=== PATIENT | female | born 1950 | race Hispanic/Latino ===

== ENCOUNTER → 2020-05-08 | Outpatient (CLI) | payer OTHER, MEDICARE | END | disposition home or self-care (01) | LOC: RAH 09:05 | PROVIDERS: ATTEND Internal Medicine Cardiovascular Disease | DX: I10 Essential (primary) hypertension (principal) | CPT/HCPCS: 93306; 93356 ==

== ENCOUNTER → 2020-05-11 | Outpatient (CLI) | payer OTHER, MEDICARE ==
[~2020-05-11] VITALS: Ht 154.9 cm; Wt 92.5 kg
[~2020-05-11] MED LIST: REGADENOSON 0.4 MG/5 ML PF SYG IVP SCH
== END | disposition home or self-care (01) ==
LOC: SHCH 08:53 → EDUNIT# 09:10
PROVIDERS: ATTEND Internal Medicine Cardiovascular Disease
DX: I20.9 Angina pectoris, unspecified (principal); I10 Essential (primary) hypertension
CPT/HCPCS: 78452; 93017; 96374; A9500 ×2; J2785

== ENCOUNTER 2020-05-30 06:00 | Day surgery (SDC) | payer OTHER, MEDICARE ==
[2020-05-26 12:52] LABS: BASOPHILS % (AUTO) 0.5 % (0.0-5.0); EOSINOPHILS % (AUTO) 2.7 % (0.0-8.0); HEMATOCRIT 36.8 % (36-48); LYMPHOCYTES % (AUTO) 18.3 % (21.0-51.0); MEAN CORPUSCULAR HEMOGLOBIN 30.2 pg (27.0-33.0); MEAN CORPUSCULAR HGB CONC 31.8 g/dL (32.0-36.0); MEAN CORPUSCULAR VOLUME 94.8 fL (79-99); MONOCYTES % (AUTO) 6.9 % (3.0-13.0); NEUTROPHILS % (AUTO) 71.3 % (40.0-77.0); PLATELET COUNT (AUTO) 152 K/uL (130-400); RED BLOOD CELL COUNT(AUTO) 3.88 MIL/uL (4.00-5.50); WHITE BLOOD COUNT (AUTO) 6.2 K/uL (4.8-10.8)
[2020-05-26 13:00] LABS: CREATININE 1.4 mg/dL (0.5-1.5)
[2020-05-26 13:00] LABS: APPEARANCE,URINE Clear (CLEAR); BILIRUBIN,URINE Negative (NEGATIVE); COLOR,URINE Yellow (YELLOW); GLUCOSE, URINE (UA) Negative (NEGATIVE); KETONES,URINE Negative (NEGATIVE); LEUKOCYTE ESTERASE ,URINE Small (NEGATIVE); NITRATE,URINE Negative (NEGATIVE); OCCULT BLOOD,URINE Negative (NEGATIVE); PROTEIN,URINE Negative (NEGATIVE)
[2020-05-26 13:06] LABS: INR 0.95 (0.85-1.15); PARTIAL THROMBOPLASTIN TIME 26.2 SEC (26.3-35.5); PROTHROMBIN TIME 10.3 SEC (9.6-11.6)
[2020-05-26 13:55] LABS: RBC,URINE 0-1 /HPF (0-1)
[2020-05-26 13:56] LABS: BACTERIA,URINE Few /HPF (None Seen)
[2020-05-29 09:37] VITALS: BP 146/73
[~2020-05-30] VITALS: Ht 154.9 cm; Wt 92.5 kg
[2020-05-30] VITALS (12 sets, daily range): BP systolic 129–168; BP diastolic 43–80
[~2020-05-30 06:00] MED LIST changes: +ALLO100T PO; +CHOL500045 PO; +COLC0.6T70 PO; +DILT240T13 PO; +DOXA1TAB2 PO; +FLUO10TA3 PO; +ISOS30TA6 PO; +LOSA25TA41 PO; +MONT10TA26 PO; +NITR0.4T50 SL; -REGADENOSON 0.4 MG/5 ML PF SYG IVP SCH; +ROSU40TA21 PO; +SODIUM CHLORIDE 0.9% 500ML 500 ML IV SCH; +SPIR25TA6 PO
[2020-05-30] MEDS ORDERED: SODIUM CHLORIDE 0.9% 1000ML 1,000 ML IV ONE (06:12)
--- NOTE | 2020-05-30 07:11 | NUR ---
ASSESSENT PT HERE FOR PROCEDURE. DENIES CHEST PAIN AT THIS TIME. SON AT BEDSIDE.
[2020-05-30] MEDS ORDERED: HEPARIN SODIUM 1000UNIT/ML 10ML VIAL ONE (07:16)
[2020-05-30] MEDS ORDERED: LIDOCAINE HCL 2% 20ML ONE (07:17)
[2020-05-30] MEDS ORDERED: IOHEXOL-350 75 ML VIAL IV ONE (07:17)
[2020-05-30] MEDS ORDERED: AEC81 PO (07:37)
--- NOTE | 2020-05-30 07:40 | NUR ---
PROCEDURE PT TAKEN TO PROCEDURE VIA BED BY FRONT DESK OFFICER STAFF.
[2020-05-30] MEDS ORDERED: SODIUM CHLORIDE 0.9% 1000ML 1,000 ML IV SCH (08:15)
--- NOTE | 2020-05-30 09:19 | NUR ---
ANXIETY PT HAVING ANXIETY. CANT SIT STILL. SON AT BEDSIDE. STATES SHES " NOT LIKE THIS". OXYGEN PLACED 2 L VIA NC AND UNCOVERED PT. BRENDA MCNALLY INFORMED OF ALL THIS. NO ORDERS RECEIVED. STATES TO CONTINUE TO MONITOR.
--- NOTE | 2020-05-30 12:19 | NUR ---
dc instructions discharge instructions given to SON. NO ANY QUESTIONS AT THIS TIME. SITE TO RIGHT GROIN SOFT TO TOUCH.
--- NOTE | 2020-05-30 14:30 | NUR ---
PT discharged home, appears calm and relaxed, tolerating fluids well, ambulating well with cane, denies any severe pain, nausea or dizziness. Pt voided good amount prior to discharging home. Site to right cath site remains soft and non-tender, dressing clean, dry and intact. Pt and family member report no further questions at this time.
== END 2020-05-30 14:30 | disposition home or self-care (01) ==
LOC: DAH 06:00
PROVIDERS: ATTEND Internal Medicine Cardiovascular Disease
DX: I25.110 Atherosclerotic heart disease of native coronary artery with unstable angina pectoris (principal); E78.00 Pure hypercholesterolemia, unspecified; E66.09 Other obesity due to excess calories; Z68.38 Body mass index [BMI] 38.0-38.9, adult; Z82.49 Family history of ischemic heart disease and other diseases of the circulatory system; Z88.8 Allergy status to other drugs, medicaments and biological substances; Z90.49 Acquired absence of other specified parts of digestive tract; Z98.890 Other specified postprocedural states; Z85.528 Personal history of other malignant neoplasm of kidney; Z79.01 Long term (current) use of anticoagulants
CPT/HCPCS: 36415; 71045; 80048; 81001; 85025; 85610; 85730; 93005; 93458; A4215; A4216; A4221; A4222; A4223 ×3; A4606; A4663; A6260; C1894; J1644; J3490; J7030; Q9967

== ENCOUNTER → 2020-07-26 | Outpatient (CLI) | payer OTHER, MEDICARE ==
[~2020-07-26] MED LIST changes: +AEC81 PO; -COLC0.6T70 PO; +COLC0.6T73 PO; -MONT10TA26 PO; +MONT10TA96 PO; -SODIUM CHLORIDE 0.9% 500ML 500 ML IV SCH
== END | disposition home or self-care (01) ==
LOC: SHCH 11:14
PROVIDERS: ATTEND Internal Medicine Cardiovascular Disease
DX: I65.21 Occlusion and stenosis of right carotid artery (principal)
CPT/HCPCS: 93880

== ENCOUNTER 2021-02-07 06:06 | Day surgery (SDC) | payer OTHER, MEDICARE ==
[2021-01-31 12:42] LABS: BASOPHILS % (AUTO) 0.5 % (0.0-5.0); EOSINOPHILS % (AUTO) 3.7 % (0.0-8.0); HEMATOCRIT 37.7 % (36-48); LYMPHOCYTES % (AUTO) 20.5 % (21.0-51.0); MEAN CORPUSCULAR HGB CONC 31.6 g/dL (32.0-36.0); MONOCYTES % (AUTO) 6.3 % (3.0-13.0); NEUTROPHILS % (AUTO) 68.8 % (40.0-77.0); PLATELET COUNT (AUTO) 147 K/uL (130-400); RED BLOOD CELL COUNT(AUTO) 3.97 MIL/uL (4.00-5.50); RED CELL DISTRIBUTION WIDTH 13.6 % (11.0-15.5)
[2021-01-31 12:49] LABS: APPEARANCE,URINE Clear (CLEAR); BILIRUBIN,URINE Negative (NEGATIVE); COLOR,URINE Yellow (YELLOW); GLUCOSE, URINE (UA) Negative (NEGATIVE); KETONES,URINE Negative (NEGATIVE); LEUKOCYTE ESTERASE ,URINE Small (NEGATIVE); NITRATE,URINE Negative (NEGATIVE); OCCULT BLOOD,URINE Negative (NEGATIVE); PH,URINE 5.5 (5.0-8.0); PROTEIN,URINE Negative (NEGATIVE)
[2021-01-31 12:51] LABS: POTASSIUM 5.3 mmol/L (3.5-5.1)
[2021-01-31 12:54] LABS: INR 1.01 (0.85-1.15)
[2021-01-31 12:55] LABS: PARTIAL THROMBOPLASTIN TIME 26.8 SEC (26.3-35.5)
[2021-01-31 12:59] LABS: BACTERIA,URINE Rare /HPF (None Seen); RBC,URINE 0-1 /HPF (0-1); SQUAMOUS EPITHELIAL CELL,UR Rare /HPF (0-2); WBC,URINE 0-1 /HPF (0-1)
[2021-02-06 14:26] VITALS: BP 169/74
[2021-02-07] VITALS (14 sets, daily range): BP systolic 140–198; BP diastolic 47–92
[~2021-02-07] VITALS: Ht 154.9 cm; Wt 93.0 kg
[~2021-02-07 06:06] MED LIST changes: +0.9% NACL 500ML IV.SOLN 500 ML IV SCH; +CALC-190 PO; -CHOL500045 PO; -DILT240T13 PO; -ISOS30TA6 PO; +LISI20TA24 PO; -LOSA25TA41 PO; +METO-391 PO; +MONT10TA32 PO; -MONT10TA96 PO
[2021-02-07] MEDS ORDERED: 0.9%NACL 1000ML 1,000 ML IV ONE (06:16)
[2021-02-07] MEDS ORDERED: LIDOCAINE HCL 400MG/20ML VIAL ONE (07:11)
[2021-02-07] MEDS ORDERED: HEPARIN 10,000 UNIT/10ML (1,000 UNIT/ML) VIAL ONE (07:11)
[2021-02-07] MEDS ORDERED: IOHEXOL 350 MG/ML 100ML INFUS..BTL IV ONE (07:11)
[2021-02-07] MEDS ORDERED: IOHEXOL-350 50ML VIAL IV ONE (07:11)
[2021-02-07] MEDS ORDERED: HEPARIN 1,000 UNIT VIAL ONE (07:13)
[2021-02-07] MEDS ORDERED: ATROPINE 1MG SYG IVP ONE (07:45)
[2021-02-07] MEDS ORDERED: HYDRALAZINE 20MG/ML VIAL ONE (08:01)
[2021-02-07] MEDS ORDERED: ENALAPRILAT DIHYDRATE 1.25 MG/ML 2ML VIAL IVP ONE (08:10)
[2021-02-07] MEDS ORDERED: NITROGLYCERIN 4.1 GM SPRAY TL ONE (08:18)
[2021-02-07] MEDS ORDERED: 0.9%NACL 1000ML 1,000 ML IV SCH (08:30)
[2021-02-07] MEDS ORDERED: APAP-CODEINE 300/30MG TAB ONE (09:33)
[2021-02-07] MEDS ORDERED: MORPHINE 4 MG SYG ONE (09:54)
== END 2021-02-07 17:25 | disposition home or self-care (01) ==
LOC: DAH 06:06
PROVIDERS: ATTEND Internal Medicine Cardiovascular Disease
DX: I25.119 Atherosclerotic heart disease of native coronary artery with unspecified angina pectoris (principal); I11.0 Hypertensive heart disease with heart failure; I50.22 Chronic systolic (congestive) heart failure; E78.5 Hyperlipidemia, unspecified; Z90.49 Acquired absence of other specified parts of digestive tract; Z90.5 Acquired absence of kidney; Z79.899 Other long term (current) drug therapy; Z98.890 Other specified postprocedural states; Z79.01 Long term (current) use of anticoagulants
CPT/HCPCS: 36415 ×2; 71045; 80048; 81001; 84132; 85025; 85610; 85730; 93005; 93458; A4215; A4216; A4221; A4222; A4223 ×3; A4335; A4606; A4663; A6260; A6402; C1894 ×2; J0360; J1644 ×2; J2270; J3490 ×2; J7030; Q9965; Q9967 ×2; 96360; 96361; J0461

== ENCOUNTER → 2022-03-20 | Outpatient (CLI) | payer OTHER, MEDICARE ==
[~2022-03-20] MED LIST changes: -0.9% NACL 500ML IV.SOLN 500 ML IV SCH; +MONT-39 PO; -MONT10TA32 PO
[2022-03-20 12:47] LABS: CREATININE 1.1 mg/dL (0.5-1.5); POTASSIUM 4.4 mmol/L (3.5-5.1)
== END | disposition home or self-care (01) ==
LOC: LAB 09:06
PROVIDERS: ATTEND Physician Assistant
DX: I10 Essential (primary) hypertension (principal)
CPT/HCPCS: 36415; 80048

== ENCOUNTER → 2022-04-25 | Outpatient (CLI) | payer OTHER, MEDICARE | END | disposition home or self-care (01) | LOC: OIH 10:27 | PROVIDERS: ATTEND Internal Medicine Cardiovascular Disease | DX: I87.2 Venous insufficiency (chronic) (peripheral) (principal) | CPT/HCPCS: 93970 ==

== ENCOUNTER → 2022-05-09 | Outpatient (CLI) | payer OTHER, MEDICARE | END | disposition home or self-care (01) | LOC: SHCH 07:50 | PROVIDERS: ATTEND Internal Medicine Cardiovascular Disease | DX: I10 Essential (primary) hypertension (principal) | CPT/HCPCS: 93975 ==

== ENCOUNTER → 2022-07-04 | Outpatient (CLI) | payer OTHER, MEDICARE ==
[2022-07-04 12:36] LABS: BASOPHILS % (AUTO) 0.6 % (0.0-5.0); EOSINOPHILS % (AUTO) 3.5 % (0.0-8.0); HEMATOCRIT 37.7 % (36-48); MEAN CORPUSCULAR HEMOGLOBIN 29.7 pg (27.0-33.0); MEAN CORPUSCULAR HGB CONC 30.8 g/dL (32.0-36.0); MEAN CORPUSCULAR VOLUME 96.4 fL (79-99); MONOCYTES % (AUTO) 7.8 % (3.0-13.0); PLATELET COUNT (AUTO) 163 K/uL (130-400); RED BLOOD CELL COUNT(AUTO) 3.91 MIL/uL (4.00-5.50); RED CELL DISTRIBUTION WIDTH 14.2 % (11.0-15.5); WHITE BLOOD COUNT (AUTO) 6.8 K/uL (4.8-10.8)
[2022-07-04 12:47] LABS: POTASSIUM 5.2 mmol/L (3.5-5.1)
[2022-07-04 13:19] LABS: INR 0.93 (0.85-1.15)
[2022-07-04 13:20] LABS: PARTIAL THROMBOPLASTIN TIME 26.1 SEC (26.3-35.5)
== END | disposition home or self-care (01) ==
LOC: LAB 10:21
PROVIDERS: ATTEND Internal Medicine Cardiovascular Disease
DX: I10 Essential (primary) hypertension (principal); Z79.01 Long term (current) use of anticoagulants
CPT/HCPCS: 36415; 80048; 85025; 85610; 85730

== ENCOUNTER → 2022-11-13 | Outpatient (CLI) | payer OTHER, MEDICARE ==
[~2022-11-13] MED LIST changes: -FLUO10TA3 PO; +FLUO10TA35 PO
[2022-11-13 16:27] LABS: BASOPHILS % (AUTO) 0.6 % (0.0-5.0); EOSINOPHILS % (AUTO) 2.7 % (0.0-8.0); HEMATOCRIT 33.8 % (36-48); LYMPHOCYTES % (AUTO) 20.5 % (21.0-51.0); MEAN CORPUSCULAR HEMOGLOBIN 29.5 pg (27.0-33.0); MEAN CORPUSCULAR HGB CONC 30.8 g/dL (32.0-36.0); MEAN CORPUSCULAR VOLUME 95.8 fL (79-99); MONOCYTES % (AUTO) 7.1 % (3.0-13.0); NEUTROPHILS % (AUTO) 68.7 % (40.0-77.0); PLATELET COUNT (AUTO) 166 K/uL (130-400); RED BLOOD CELL COUNT(AUTO) 3.53 MIL/uL (4.00-5.50); RED CELL DISTRIBUTION WIDTH 14.7 % (11.0-15.5); WHITE BLOOD COUNT (AUTO) 4.8 K/uL (4.8-10.8)
[2022-11-13 16:33] LABS: INR 0.94 (0.85-1.15); PROTHROMBIN TIME 10.3 SEC (9.6-11.6)
[2022-11-13 16:34] LABS: PARTIAL THROMBOPLASTIN TIME 27.9 SEC (26.3-35.5)
[2022-11-13 16:35] LABS: ALBUMIN 3.3 g/dL (3.5-5.0); CREATININE 1.1 mg/dL (0.5-1.5); POTASSIUM 4.9 mmol/L (3.5-5.1); TOTAL PROTEIN, SERUM 7.6 g/dL (6.0-8.3)
== END | disposition home or self-care (01) ==
LOC: LAB 11:36
PROVIDERS: ATTEND Internal Medicine Cardiovascular Disease
DX: I87.1 Compression of vein (principal); I10 Essential (primary) hypertension; I25.119 Atherosclerotic heart disease of native coronary artery with unspecified angina pectoris; E78.00 Pure hypercholesterolemia, unspecified; I73.9 Peripheral vascular disease, unspecified; M79.89 Other specified soft tissue disorders; R20.0 Anesthesia of skin; R25.2 Cramp and spasm; E66.9 Obesity, unspecified; Z68.37 Body mass index [BMI] 37.0-37.9, adult; Z95.828 Presence of other vascular implants and grafts; Z79.82 Long term (current) use of aspirin; Z79.02 Long term (current) use of antithrombotics/antiplatelets; Z79.899 Other long term (current) drug therapy
CPT/HCPCS: 36415; 80053; 85025; 85610; 85730

== ENCOUNTER → 2024-10-25 | Outpatient (CLI) | payer MEDICARE ==
[~2024-10-25] MED LIST changes: -ROSU40TA21 PO; +ROSU40TA88 PO
== END | disposition home or self-care (01) ==
LOC: SHCH 08:48
PROVIDERS: ATTEND Internal Medicine Cardiovascular Disease
DX: I08.8 Other rheumatic multiple valve diseases (principal); R60.9 Edema, unspecified
CPT/HCPCS: 93306

== ENCOUNTER 2025-02-15 05:54 | Day surgery (SDC) | payer MEDICARE, MEDICAID ==
[2025-02-11 10:24] LABS: IMMATURE GRANULOCYTE ABSOLUTE 0.01 K/uL (0-1); NUCLEATED RED BLOOD CELLS 0.0 % (0.0-0.19); PLATELET COUNT (AUTO) 148 K/uL (130-400); RED BLOOD CELL COUNT(AUTO) 3.81 MIL/uL (4.00-5.50); RED CELL DISTRIBUTION WIDTH 14.6 % (11.0-15.5); WHITE BLOOD COUNT (AUTO) 5.7 K/uL (4.8-10.8)
[2025-02-11 10:25] VITALS: BP 177/88; PULSE 64; RESP 18; TEMP 97.3
[2025-02-11 10:39] LABS: INR 0.95 (0.85-1.15)
[2025-02-11 11:01] LABS: CREATININE 1.2 mg/dL (0.5-1.0); GLOMERULAR FILTR. RATE CALC 47.0 mL/min (>90); GLUCOSE,RANDOM 104.0 mg/dL (70-105); SODIUM SERUM 144.0 mmol/L (136-145); UREA NITROGEN, BLOOD 39.0 mg/dL (7-18)
--- NOTE | 2025-02-14 15:29 | NUR ---
RE: LABS REPORTED BMP RESULTS TO BRENDA PEDRAZA. RECEIVED ORDERS TO REPEAT BMP IN AM.
[~2025-02-15] VITALS: Ht 154.9 cm; Wt 94.1 kg
[2025-02-15] VITALS (8 sets, daily range): BP systolic 128–174; BP diastolic 52–64; PULSE 52–88; RESP 14–16; TEMP 97.3–97.4
[~2025-02-15 05:54] MED LIST changes: -AEC81 PO; +AMLO-258 PO; -CALC-190 PO; -COLC0.6T73 PO; +DULO30CA52 PO; -FLUO10TA35 PO; +ISOS30TA92 PO; -LISI20TA24 PO; -METO-391 PO; +METO25TA6 PO; +OMEP40CA21 PO; -SPIR25TA6 PO; +VALS320T16 PO; +WOMEN S MVI PO
[2025-02-15 06:57] LABS: CREATININE 1.5 mg/dL (0.5-1.0); GLOMERULAR FILTR. RATE CALC 36.0 mL/min (>90); GLUCOSE,RANDOM 109.0 mg/dL (70-105); SODIUM SERUM 143.0 mmol/L (136-145); UREA NITROGEN, BLOOD 42.0 mg/dL (7-18)
[2025-02-15] MEDS ORDERED: IOHEXOL 350 MG/ML 100ML INFUS..BTL IV ONE (07:16)
[2025-02-15] MEDS ORDERED: LIDOCAINE HCL 400MG/20ML VIAL ONE (07:16)
[2025-02-15] MEDS ORDERED: HEParin-NS 1,000 UNIT/500 ML 1,000 ML IV ONE (07:17)
[2025-02-15] MEDS ORDERED: NITROGLYCERIN 50MG VIAL ONE (07:17)
[2025-02-15] MEDS ORDERED: MIDAZOLAM HCL 1 MG/ML 2ML VIAL ONE (07:32)
--- NOTE | 2025-02-15 08:09 | PRN ---
Procedure Note INDICATION FOR PROCEDURE: [] Iliac vein compression Left leg pain and swelling PROCEDURE: [] Conscious sedation Left common femoral vein sheath placement 8 Armenian Bilateral common femoral venogram Intravascular ultrasound of IVC, bilateral common iliac external iliac and common femoral veins DATE OF PROCEDURE: February 16, 2025 SUPERVISOR GROWER: Dr. Archer PROCEDURE NOTE: [] Patient was electively brought to catheterization suite and prepped and draped in sterile fashion. An IV was started if not already in place and both groins were exposed for venous access. 2% lidocaine was used for local anesthesia and then a micro puncture kit was used to gain access and once free flow blood was seen modified Seldinger technique was utilized to place an 8 Armenian sheath into the left common femoral vein. Next a venogram was performed. Next a 0.035 in g lidewire was then placed in the IVC and an intravascular ultrasound catheter was then used to interrogate IVC, left common iliac external iliac common femoral vein. Next the IVUS catheter was removed and an Omni flush catheter 5 Armenian was then placed into the IVC to direct the Glidewire into the right common femoral vein. Next Omni flush catheter was then advanced venogram was performed of the right common femoral vein and then IVUS catheter was replaced over wire as Omni flush catheter was removed. Interrogation of right common femoral vein external iliac vein and common iliac vein on the right was performed. At end of case manual pressure was held no complications occurred. FINDINGS: [] Patent left common iliac and external iliac vein stent Patent right common iliac and external iliac vein stent 60% compression of the left common femoral vein PLAN: [] Patient will be discharged home today Follow up with Dr. Archer in 2 weeks Request authorization for to proceed with intervention to symptomatic compression of left common femoral vein MEEK ARCHER MD Feb 15, 2025 08:09
[2025-02-15] MEDS ORDERED: GLUCAGON 1MG KIT 1 MG ML IM PRN (08:30)
[2025-02-15] MEDS ORDERED: DEXTROSE 50%-WATER 50 ML DISP.SYRIN IV PRN (08:30)
[2025-02-15] MEDS ORDERED: 0.9%NACL 1000ML 1,000 ML IV SCH (08:30)
--- NOTE | 2025-02-15 10:50 | NUR ---
BOTH PT AND SON GIVEN VERBAL AND WRITTEN DISCHARGE INSTRUCTIONS. IV REMOVED SITE ASYMPTOMATIC. LEFT GROIN SOFT NON TENDER. PT TAKEN VIA WHEELCHAIR SON DRIVING.
== END 2025-02-15 11:12 | disposition home or self-care (01) ==
LOC: DAH 05:54
PROVIDERS: ATTEND Internal Medicine Cardiovascular Disease
DX: I87.1 Compression of vein (principal); I87.2 Venous insufficiency (chronic) (peripheral); I10 Essential (primary) hypertension; I25.119 Atherosclerotic heart disease of native coronary artery with unspecified angina pectoris; E78.00 Pure hypercholesterolemia, unspecified; E66.9 Obesity, unspecified; Z95.820 Peripheral vascular angioplasty status with implants and grafts; Z79.899 Other long term (current) drug therapy; Z79.82 Long term (current) use of aspirin; Z98.890 Other specified postprocedural states; Z82.49 Family history of ischemic heart disease and other diseases of the circulatory system; Z68.39 Body mass index [BMI] 39.0-39.9, adult; Z79.01 Long term (current) use of anticoagulants
CPT/HCPCS: 80048 ×2; 85025; 85610; 85730; 36415 ×2; 75822; 36012; 37252; 37253 ×5; 99156; 99157 ×2; C1769; C1894 ×3; C1753; J3010; J3490; J2250; J1644; Q9967; A4215; A4222; A4221; A4663; A4216; A4335; A4606; A4223 ×3; A4554